=== PATIENT | female | born 1975 | race Two or more races ===

== ENCOUNTER → 2025-05-23 | Outpatient (CLI) | payer MEDICAID, SELFPAY ==
--- NOTE | 2025-05-23 08:00 | XR_ITS ---
Examination: Breast ultrasound, unilateral, right complete Date and time of exam: May 23, 2025 0820 hours INDICATIONS: Right breast sonography February 12, 2024 BI-RADS 4 suspicious mass 12:00 position right breast, patient states left breast pain 3 months Technique: Real-time galindo scale ultrasonographic imaging performed right breast including all 4 quadrants as well as nipple retroareolar and axillary region. Findings: Sonographic images right breast 12:00 nodule 8 x 7 mm with shadowing IMPRESSION: 12:00 nodule right breast 8 x 7 mm BI-RADS Category 3, probably benign findings One additional 6 month right breast sonogram follow-up is recommended
--- NOTE | 2025-05-23 08:30 | XR_ITS ---
Examination: Diagnostic digital mammography, bilateral Computer aided detection 3-D breast Tomosynthesis, bilateral Date and time of exam: May 23, 2025 0843 hours Compared to mammograms dating to September 27, 2015 INDICATIONS: Right breast pain beginning 3 months ago, biopsy of BI-RADS 4 suspicious nodule 12:00 position right breast on June 07, 2024 Technique: Nonmagnified MLO, CC views of the breasts to been obtained, reconstructed from 3-D Tomosynthesis images. R2 computer aided detection program utilized for evaluation of suspicious masses and/or abnormal calcifications. 3-D Tomosynthesis images obtained. Findings: The breasts are heterogeneously dense, which may obscure small masses Breast biopsy marker upper outer left breast anterior depth with associated nodule Impression: BI-RADS Category 3: Probably benign findings One additional 6 month left mammogram follow-up is needed.
== END | disposition home or self-care (01) ==
LOC: CDIM 07:59
PROVIDERS: Referring Provider Obstetrics & Gynecology; Visit Provider Obstetrics & Gynecology
DX: R92.8 Other abnormal and inconclusive findings on diagnostic imaging of breast (principal); N63.15 Unspecified lump in the right breast, overlapping quadrants; R92.333 Mammographic heterogeneous density, bilateral breasts
CPT/HCPCS: 76641; 77062; 77066; G0279